=== PATIENT | female | born 1955 | race Caucasian/White ===

== ENCOUNTER 2017-01-18 18:22 | Emergency (ER) | payer MEDICAID ==
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
[2017-01-18] MEDS ORDERED: Acetaminophen 500 MG Tab PO ONE (19:56)
== END 2017-01-18 20:12 | disposition home or self-care (01) ==
LOC: JP.ED 18:22
DX: Z76.0 Encounter for issue of repeat prescription (principal); E78.00 Pure hypercholesterolemia, unspecified; J44.9 Chronic obstructive pulmonary disease, unspecified; E11.9 Type 2 diabetes mellitus without complications; Z79.82 Long term (current) use of aspirin; Z79.899 Other long term (current) drug therapy; Z88.0 Allergy status to penicillin; Z88.8 Allergy status to other drugs, medicaments and biological substances
CPT/HCPCS: 36415; 80048; 80178; 85025; 99285; A9270; 99283

== ENCOUNTER 2018-04-27 18:55 | Emergency (ER) | payer MEDICAID ==
--- NOTE | 2018-04-27 19:41 | EDM.PDOCBH ---
ED HPI GENERAL MEDICAL PROBLEM - General Chief Complaint: Drug or Alcohol Abuse Stated Complaint: OVERDOSE [place] Time Seen by Provider: 04/27/18 19:25 Source of Information: Reports: Patient, EMS, Old Records, RN History Limitations: Reports: Other (Very poor historian) - History of Present Illness INITIAL COMMENTS - FREE TEXT/NARRATIVE: 62 yo female presents from her home via EMS for a possible overdose of trazodone. She is prescribed 100 mg tabs and told EMS that she took 6. For me she is not sure exactly how many she took. Denies any other ingestions. Does have a hx of depression. Her significant other called EMS tonight when he found out what she had done, so far he has not presented to the ER. She reports only a dry mouth currently as a side effect. Is not very forthcoming with history for us tonight. Onset: Today Onset Date: 04/27/18 Duration: Minutes: (?), Hour(s): (?), Constant Location: Reports: Generalized Quality: Reports: Other (no reported pain) Severity: Mild (?) Improves with: Reports: None Worsens with: Reports: None Context: Reports: Other (see HPI) Associated Symptoms: Reports: Other (dry mouth) Treatments PERSONAL FINANCIAL ADVISOR: Reports: Other (see below) (saline lock placed per EMS) denies pain Pain Score (Numeric/FACES): 0 - Related Data Allergies Allergy/AdvReac Type Severity Reaction Status Date / Time etodolac [From Lodine] Allergy Cannot Verified 04/27/18 19:10 Remember Penicillins Allergy Cannot Verified 04/27/18 19:10 Remember zolpidem [From Ambien] Allergy Hallucinati Verified 04/27/18 19:10 ons Home Meds: Home Meds Albuterol [Ventolin HFA] 1 puff IN BID 03/26/13 [History] Aspirin [Aspirin EC] 81 mg PO DAILY 03/26/13 [History] Cholecalciferol (Vitamin D3) [Vitamin D] 5,000 unit PO DAILY 03/26/13 [History] Lactobacillus Combo No.6 [Probiotic Complex] 1 each PO DAILY 03/26/13 [History] Latanoprost 1 drop EYEBOTH BEDTIME 03/26/13 [History] Linaclotide [Linzess] 145 mcg PO BID 03/26/13 [History] [place] Carbonate 450 mg PO BEDTIME 03/26/13 [History] clonazePAM [Clonazepam] 1 mg PO TID 03/26/13 [History] ClonazePAM [KlonoPIN] 1 mg PO TID 01/18/17 [History] [place] Carbonate [[place] Carbonate ER] 450 mg PO 01/18/17 [History] atorvaSTATin [Lipitor] 20 mg PO BEDTIME 01/18/17 [History] Diclofenac Potassium [Cataflam] 50 mg PO BID 04/27/18 [History] Gabapentin [Neurontin] 300 mg PO BID 04/27/18 [History] Lisdexamfetamine [Vyvanse] 70 mg PO DAILY 04/27/18 [History] Ranitidine HCl [Zantac] 150 mg PO BID 04/27/18 [History] Vilazodone [Viibryd] 40 mg PO DAILY 04/27/18 [History] Vitamin E (Dl,Tocopheryl Acet) [Vitamin E] 800 mg PO DAILY 04/27/18 [History] chlorproMAZINE HCl [Chlorpromazine HCl] 1 - 4 tab PO ASDIRECTED PRN 04/27/18 [ History] traZODone HCl [Trazodone HCl] 350 mg PO BEDTIME 04/27/18 [History] Past Medical History Cardiovascular History: Reports: High Cholesterol Respiratory History: Reports: COPD Endocrine/Metabolic History: Reports: Diabetes, Type II Social & Family History - Tobacco Use Smoking Status *Q: Current Every Day Smoker Years of Tobacco use: 38 Packs/Tins Daily: 1 - Caffeine Use Caffeine Use: Reports: Coffee, Soda - Recreational Drug Use Recreational Drug Use: No ED ROS GENERAL - Review of Systems Review Of Systems: See Below Constitutional: Reports: No Symptoms HEENT: Reports: Other (dry mouth) Respiratory: Reports: No Symptoms Cardiovascular: Reports: No Symptoms Endocrine: Reports: No Symptoms GI/Abdominal: Reports: No Symptoms : Reports: No Symptoms Musculoskeletal: Reports: No Symptoms Skin: Reports: No Symptoms Neurological: Reports: No Symptoms Psychiatric: Reports: Depression, Suicidal Ideation (?) ED EXAM, BEHAVIORAL HEALTH - Physical Exam Exam: See Below Exam Limited By: No Limitations General Appearance: Alert, WD/WN, No Apparent Distress Eye Exam: Bilateral Eye: Normal Inspection Ears: Normal External Exam, Normal Canal, Hearing Grossly Normal Nose: Normal Inspection, No Blood Throat/Mouth: Normal Inspection, Normal Lips, Normal Oropharynx, Normal Voice, No Airway Compromise Head: Atraumatic, Normocephalic Neck: Normal Inspection Respiratory/Chest: No Respiratory Distress, Lungs Clear, Normal Breath Sounds, No Accessory Muscle Use Cardiovascular: Regular Rate, Rhythm, No Edema GI/Abdominal: Normal Bowel Sounds, Soft, Non-Tender Back Exam: Normal Inspection. No: CVA Tenderness (R), CVA Tenderness (L) Extremities: Normal Inspection, Normal Range of Motion, Non-Tender, No Pedal Edema Neurological: Alert, CN II-XII Intact, No Motor/Sensory Deficits, Oriented x 3 Psychiatric: Alert, Flat Affect Skin Exam: Warm, Dry, Intact, Normal color, No rash EKG INTERPRETATION EKG Date: 04/27/18 Time: 19:25 Rhythm: NSR Rate (Beats/Min): 86 [place]: Normal P-Wave: Present ST-T: Depressed (very slight in V5 and V6) QT: Prolonged (borderline) Comparison: Change From Previous EKG EKG Interpretation Comments: T wave inversion anterior leads. COURSE, BEHAVIORAL HEALTH COMP - Course Vital Signs: Last Vital Signs Temp 36.7 C 04/28/18 01:57 Pulse 101 H 04/28/18 01:57 Resp 16 04/28/18 01:57 BP 139/76 04/28/18 01:57 Pulse Ox 92 L 04/28/18 01:57 Orders, Labs, Meds: Active Orders 24 hr Category Date Time Status Cardiac Monitoring [RC] .As Directed Care 04/27/18 19:34 Active EKG Documentation Completion [RC] ASDIRECTED Care 04/27/18 19:48 Active LITHIUM (ESKALITH(R)), SERUM Stat Lab 04/27/18 19:06 Ordered Suicide Precautions [OM.PC] Routine Oth 04/27/18 19:26 Ordered EKG 12 Lead [EK] Routine Ther 04/27/18 19:48 Ordered Laboratory Tests 04/27/18 04/27/18 04/27/18 Range/Units 19:03 19:03 19:03 WBC 11.8 H (4.5-11.0) K/uL RBC 4.62 (3.30-5.50) M/uL Hgb 14.3 (12.0-15.0) g/dL Hct 45.0 (36.0-48.0) % MCV 97 (80-98) fL MCH 31 (27-31) pg MCHC 32 (32-36) % Plt Count 254 (150-400) K/uL Sodium (140-148) mmol/L Potassium (3.6-5.2) mmol/L Chloride (100-108) mmol/L Carbon Dioxide (21-32) mmol/L Anion Gap (5.0-14.0) mmol/L BUN (7-18) mg/dL Creatinine (0.6-1.0) mg/dL Est Cr Clr Drug Dosing Estimated GFR (MDRD) (>60) Glucose (74-106) mg/dL Calcium (8.5-10.1) mg/dL Troponin I (0.000-0.056) ng/mL Urine Color Urine Appearance Urine pH (4.5-8.0) Ur Specific [place] (1.008-1.030) Urine Protein (NEGATIVE) mg/dL Urine Glucose (UA) (NEGATIVE) mg/dL Urine Ketones (NEGATIVE) mg/dL Urine Occult Blood (NEGATIVE) Urine Nitrite (NEGATIVE) Urine Bilirubin (NEGATIVE) Urine Urobilinogen (NORMAL) mg/dL Ur Leukocyte Esterase (NEGATIVE) Salicylates 5.0 (2.0-20.0) mg/dL Urine Opiates Screen (NEGATIVE) Ur Oxycodone Screen (NEGATIVE) Urine Methadone Screen (NEGATIVE) Ur Propoxyphene Screen (NEGATIVE) Acetaminophen < 2.0 L (10.0-30.0) ug/mL Ur Barbiturates Screen (NEGATIVE) Ur Tricyclics Screen (NEGATIVE) Ur Phencyclidine Scrn (NEGATIVE) Ur Amphetamine Screen (NEGATIVE) U Methamphetamines Scrn (NEGATIVE) Urine MDMA Screen (NEGATIVE) U Benzodiazepines Scrn (NEGATIVE) U Cocaine Metab Screen (NEGATIVE) U Marijuana (THC) Screen (NEGATIVE) Ethyl Alcohol mg/dL 04/27/18 04/27/18 04/27/18 Range/Units 19:03 19:03 19:46 WBC (4.5-11.0) K/uL RBC (3.30-5.50) M/uL Hgb (12.0-15.0) g/dL Hct (36.0-48.0) % MCV (80-98) fL MCH (27-31) pg MCHC (32-36) % Plt Count (150-400) K/uL Sodium 137 L (140-148) mmol/L Potassium 4.0 (3.6-5.2) mmol/L Chloride 101 (100-108) mmol/L Carbon Dioxide 26 (21-32) mmol/L Anion Gap 14.0 (5.0-14.0) mmol/L BUN 15 (7-18) mg/dL Creatinine 1.1 H (0.6-1.0) mg/dL Est Cr Clr Drug Dosing TNP Estimated GFR (MDRD) 50 L (>60) Glucose 204 H (74-106) mg/dL Calcium 10.5 H (8.5-10.1) mg/dL Troponin I < 0.017 (0.000-0.056) ng/mL Urine Color Urine Appearance Urine pH (4.5-8.0) Ur Specific [place] (1.008-1.030) Urine Protein (NEGATIVE) mg/dL Urine Glucose (UA) (NEGATIVE) mg/dL Urine Ketones (NEGATIVE) mg/dL Urine Occult Blood (NEGATIVE) Urine Nitrite (NEGATIVE) Urine Bilirubin (NEGATIVE) Urine Urobilinogen (NORMAL) mg/dL Ur Leukocyte Esterase (NEGATIVE) Salicylates (2.0-20.0) mg/dL Urine Opiates Screen (NEGATIVE) Ur Oxycodone Screen (NEGATIVE) Urine Methadone Screen (NEGATIVE) Ur Propoxyphene Screen (NEGATIVE) Acetaminophen (10.0-30.0) ug/mL Ur Barbiturates Screen (NEGATIVE) Ur Tricyclics Screen (NEGATIVE) Ur Phencyclidine Scrn (NEGATIVE) Ur Amphetamine Screen (NEGATIVE) U Methamphetamines Scrn (NEGATIVE) Urine MDMA Screen (NEGATIVE) U Benzodiazepines Scrn (NEGATIVE) U Cocaine Metab Screen (NEGATIVE) U Marijuana (THC) Screen (NEGATIVE) Ethyl Alcohol < 3 mg/dL 04/27/18 04/27/18 Range/Units 20:51 20:51 WBC (4.5-11.0) K/uL RBC (3.30-5.50) M/uL Hgb (12.0-15.0) g/dL Hct (36.0-48.0) % MCV (80-98) fL MCH (27-31) pg MCHC (32-36) % Plt Count (150-400) K/uL Sodium (140-148) mmol/L Potassium (3.6-5.2) mmol/L Chloride (100-108) mmol/L Carbon Dioxide (21-32) mmol/L Anion Gap (5.0-14.0) mmol/L BUN (7-18) mg/dL Creatinine (0.6-1.0) mg/dL Est Cr Clr Drug Dosing Estimated GFR (MDRD) (>60) Glucose (74-106) mg/dL Calcium (8.5-10.1) mg/dL Troponin I (0.000-0.056) ng/mL Urine Color Yellow Urine Appearance Clear Urine pH 5.0 (4.5-8.0) Ur Specific [place] 1.025 (1.008-1.030) Urine Protein Negative (NEGATIVE) mg/dL Urine Glucose (UA) Normal (NEGATIVE) mg/dL Urine Ketones 50 H (NEGATIVE) mg/dL Urine Occult Blood Negative (NEGATIVE) Urine Nitrite Negative (NEGATIVE) Urine Bilirubin Negative (NEGATIVE) Urine Urobilinogen Normal (NORMAL) mg/dL Ur Leukocyte Esterase Negative (NEGATIVE) Salicylates (2.0-20.0) mg/dL Urine Opiates Screen Negative (NEGATIVE) Ur Oxycodone Screen Negative (NEGATIVE) Urine Methadone Screen Negative (NEGATIVE) Ur Propoxyphene Screen Negative (NEGATIVE) Acetaminophen (10.0-30.0) ug/mL Ur Barbiturates Screen Negative (NEGATIVE) Ur Tricyclics Screen Presumptive positive H (NEGATIVE) Ur Phencyclidine Scrn Negative (NEGATIVE) Ur Amphetamine Screen Negative (NEGATIVE) U Methamphetamines Scrn Presumptive positive H (NEGATIVE) Urine MDMA Screen Presumptive positive H (NEGATIVE) U Benzodiazepines Scrn Presumptive positive H (NEGATIVE) U Cocaine Metab Screen Negative (NEGATIVE) U Marijuana (THC) Screen Presumptive positive H (NEGATIVE) Ethyl Alcohol mg/dL Medical Clearance: 04/28/18 02:33 [facility] has accepted, 0215h Departure - Departure Time of Disposition: 02:45 Disposition: DC/Tfer to Other 70 Condition: Fair Clinical Impression: Drug abuse, Depressive disorder - Discharge Information *PRESCRIPTION DRUG MONITORING PROGRAM REVIEWED*: No *COPY OF PRESCRIPTION DRUG MONITORING REPORT IN PATIENT PIETRO: No Referrals: PCP,None [Primary Care Provider] - Forms: ED Department Discharge - My Orders Last 24 Hours: My Active Orders 04/27/18 19:06 LITHIUM (ESKALITH(R)), SERUM Stat 04/27/18 19:26 Suicide Precautions [OM.PC] Routine 04/27/18 19:34 Cardiac Monitoring [RC] .As Directed 04/27/18 19:48 EKG Documentation Completion [RC] ASDIRECTED EKG 12 Lead [EK] Routine - Assessment/Plan Last 24 Hours: My Active Orders 04/27/18 19:06 LITHIUM (ESKALITH(R)), SERUM Stat 04/27/18 19:26 Suicide Precautions [OM.PC] Routine 04/27/18 19:34 Cardiac Monitoring [RC] .As Directed 04/27/18 19:48 EKG Documentation Completion [RC] ASDIRECTED EKG 12 Lead [EK] Routine
== END 2018-04-28 03:16 | disposition other institution (70) ==
LOC: JP.ED 18:55
DX: F32.9 Major depressive disorder, single episode, unspecified (principal); F19.10 Other psychoactive substance abuse, uncomplicated; E11.9 Type 2 diabetes mellitus without complications; J44.9 Chronic obstructive pulmonary disease, unspecified; F17.210 Nicotine dependence, cigarettes, uncomplicated; Z88.8 Allergy status to other drugs, medicaments and biological substances; Z88.0 Allergy status to penicillin; Z79.82 Long term (current) use of aspirin; Z79.899 Other long term (current) drug therapy
CPT/HCPCS: 36415; 80048; 80178; 80305; 81003; 84484; 85027; 93005; 99285; G0480; 93010

== ENCOUNTER 2018-11-27 07:30 | Emergency (ER) | payer MEDICAID ==
--- NOTE | 2018-11-27 08:27 | EDM.PDOCBH ---
ED HPI GENERAL MEDICAL PROBLEM - General Chief Complaint: Behavioral/Psych Stated Complaint: mental evel Time Seen by Provider: 11/27/18 07:50 Source of Information: Reports: Patient, Police History Limitations: Reports: No Limitations - History of Present Illness INITIAL COMMENTS - FREE TEXT/NARRATIVE: 63-year-old female with a long history of bipolar disorder and depression was recently admitted to the [facility]. She has only been there for the last 1- 2 weeks, apparently doesn't like it there so is "suicidal". She doesn't have a specific plan but has had some overdose issues in the past. She has an appointment with her psychiatrist this morning, they were hoping we could watch her until her appointment and get her to her appointment and then reevaluate her if the psychiatrist felt there was a real issue. I think she is just unhappy at [facility]. - Related Data Allergies Allergy/AdvReac Type Severity Reaction Status Date / Time etodolac [From Lodine] Allergy Cannot Verified 11/27/18 08:15 Remember Penicillins Allergy Cannot Verified 11/27/18 08:15 Remember zolpidem [From Ambien] Allergy Hallucinati Verified 11/27/18 08:15 ons Home Meds: Home Meds Albuterol [Ventolin HFA] 1 puff IN BID 03/26/13 [History] Aspirin [Aspirin EC] 81 mg PO DAILY 03/26/13 [History] Cholecalciferol (Vitamin D3) [Vitamin D] 5,000 unit PO DAILY 03/26/13 [History] Latanoprost 1 drop EYEBOTH BEDTIME 03/26/13 [History] Goldsmith Carbonate 450 mg PO BEDTIME 03/26/13 [History] ClonazePAM [KlonoPIN] 1 mg PO TID 01/18/17 [History] atorvaSTATin [Lipitor] 20 mg PO BEDTIME 01/18/17 [History] Gabapentin [Neurontin] 300 mg PO BID 04/27/18 [History] chlorproMAZINE HCl [Chlorpromazine HCl] 1 - 4 tab PO ASDIRECTED PRN 04/27/18 [ History] raNITIdine HCl [Zantac] 150 mg PO BID 04/27/18 [History] traZODone HCl [Trazodone HCl] 300 mg PO BEDTIME 04/27/18 [History] Citalopram [Citalopram HBr] 20 mg PO DAILY 11/27/18 [History] Meloxicam [Mobic] 7.5 mg PO DAILY 11/27/18 [History] Pramipexole [Mirapex] 0.25 mg PO BEDTIME 11/27/18 [History] Tiotropium Br/Olodaterol HCl [Stiolto Respimat Inhal Spivey] 2 puff IH DAILY [History] glipiZIDE [Glucotrol XL] 5 mg PO DAILY 11/27/18 [History] metFORMIN [Glucophage] 500 mg PO BIDMEALS 11/27/18 [History] Past Medical History HEENT History: Reports: Impaired Vision Cardiovascular History: Reports: High Cholesterol Respiratory History: Reports: COPD Gastrointestinal History: Reports: Other (See Below) Other Gastrointestinal History: unable to obtain due to pt condition Genitourinary History: Reports: Other (See Below) Other Genitourinary History: unable to obtain due to pt condition RESEARCH AIDE History: Reports: Musculoskeletal History: Reports: Osteoarthritis Other Musculoskeletal History: unable to obtain due to pt condition Neurological History: Reports: Other (See Below) Other Neuro History: unable to obtain due to pt condition Psychiatric History: Reports: Bipolar, Depression Endocrine/Metabolic History: Reports: Diabetes, Type II Hematologic History: Reports: Other (See Below) Other Hematologic History: unable to obtain due to pt condition Immunologic History: Reports: Other (See Below) Other Immunologic History: unable to obtain due to pt condition Oncologic (Cancer) History: Reports: Other (See Below) Other Oncologic History: unable to obtain due to pt condition Dermatologic History: Reports: Other (See Below) Other Dermatologic History: unable to obtain due to pt condition - Infectious Disease History Infectious Disease History: Reports: Chicken Pox Other Infectious Disease History: unable to obtain due to pt condition - Past Surgical History HEENT Surgical History: Reports: Other (See Below) GI Surgical History: Reports: Other (See Below) Female Surgical History: Reports: Section Social & Family History - Tobacco Use Smoking Status *Q: Current Every Day Smoker Years of Tobacco use: 40 Packs/Tins Daily: 0.5 - Caffeine Use Caffeine Use: Reports: Coffee - Recreational Drug Use Recreational Drug Use: No ED ROS GENERAL - Review of Systems Review Of Systems: See Below Constitutional: Denies: Fever HEENT: Reports: No Symptoms Respiratory: Denies: Shortness of Breath GI/Abdominal: Denies: Nausea Neurological: Reports: Headache Psychiatric: Reports: Anxiety ED EXAM, BEHAVIORAL HEALTH - Physical Exam Exam: See Below Exam Limited By: No Limitations General Appearance: Alert, No Apparent Distress Eye Exam: Bilateral Eye: Normal Inspection Head: Atraumatic Neck: Supple Respiratory/Chest: Lungs Clear Cardiovascular: Regular Rate, Rhythm Extremities: No: Pedal Edema Neurological: Alert, Normal Mood/Affect, Oriented x 3 Psychiatric: Alert, Normal Affect Skin Exam: Warm, Dry COURSE, BEHAVIORAL HEALTH COMP - Course Vital Signs: Last Vital Signs Temp 93.9 F L 11/27/18 08:01 Pulse 87 11/27/18 08:01 Resp 16 11/27/18 08:01 BP 133/82 11/27/18 08:01 Pulse Ox 99 11/27/18 08:01 Orders, Labs, Meds: Active Orders 24 hr Category Date Time Status DRUG SCREEN, URINE [URCHEM] Stat Lab 11/27/18 07:53 Ordered UA W/MICROSCOPIC [URIN] Urgent Lab 11/27/18 07:53 Ordered Laboratory Tests 11/27/18 11/27/18 Range/Units 08:04 08:04 WBC 12.9 H (4.5-11.0) K/uL RBC 4.83 (3.30-5.50) M/uL Hgb 12.6 (12.0-15.0) g/dL Hct 41.7 (36.0-48.0) % MCV 86 (80-98) fL MCH 26 L (27-31) pg MCHC 30 L (32-36) % Plt Count 328 (150-400) K/uL Neut % (Auto) 71 H (36-66) % Lymph % (Auto) 20 L (24-44) % Bledsoe % (Auto) 6 (2-6) % Eos % (Auto) 3 (2-4) % Baso % (Auto) 0 (0-1) % Sodium 139 L (140-148) mmol/L Potassium 4.5 (3.6-5.2) mmol/L Chloride 103 (100-108) mmol/L Carbon Dioxide 28 (21-32) mmol/L Anion Gap 12.5 (5.0-14.0) mmol/L BUN 9 (7-18) mg/dL Creatinine 1.0 (0.6-1.0) mg/dL Est Cr Clr Drug Dosing 53.91 mL/min Estimated GFR (MDRD) 56 L (>60) Glucose 189 H (74-106) mg/dL Calcium 9.3 (8.5-10.1) mg/dL Total Bilirubin 0.5 (0.2-1.0) mg/dL AST 10 L (15-37) U/L ALT 26 (12-78) U/L Alkaline Phosphatase 46 (46-116) U/L Total Protein 7.1 (6.4-8.2) g/dL Albumin 3.5 (3.4-5.0) g/dL Globulin 3.6 H (2.3-3.5) g/dL Albumin/Globulin Ratio 1.0 L (1.2-2.2) TSH, Ultra Sensitive 1.659 (0.358-3.740) uIU/mL Medications Discontinued Medications Generic Name Dose Route Start Last Admin Trade Name Freq PRN Reason Stop Dose Admin Acetaminophen 650 mg 11/27/18 09:18 11/27/18 09:27 Tylenol PO 11/27/18 09:19 650 mg NOW ONE Administration Metformin HCl 500 mg 11/27/18 09:42 11/27/18 10:00 Glucophage PO 11/27/18 09:43 500 mg ONETIME ONE Administration Re-Assessment/Re-Exam: CBC and CMP were obtained as well as a TSH. The patient was very needy, continually asking for either food, water, medicine for anxiety or other requests. Labs were generally normal including her TSH. Transportation was arranged for her to get to her psychiatric appointment. Departure - Departure Time of Disposition: 12:50 Disposition: DC/Tfer to Other 70 Clinical Impression: Depressive disorder - Discharge Information Instructions: Major Depressive Disorder, Adult, [id number] Referrals: PCP,None [Primary Care Provider] - Forms: ED Department Discharge Care Plan Goals: Go to your appointments as scheduled and follow the advice of your primary providers. - My Orders Last 24 Hours: My Active Orders 11/27/18 07:53 DRUG SCREEN, URINE [URCHEM] Stat UA W/MICROSCOPIC [URIN] Urgent - Assessment/Plan Last 24 Hours: My Active Orders 11/27/18 07:53 DRUG SCREEN, URINE [URCHEM] Stat UA W/MICROSCOPIC [URIN] Urgent
[2018-11-27] MEDS ORDERED: Acetaminophen 325 MG Tab PO ONE (09:18)
[2018-11-27] MEDS ORDERED: metFORMIN 500 MG Tab PO ONE (09:42)
== END 2018-11-27 12:35 | disposition other institution (70) ==
LOC: JP.ED 07:30
DX: F32.9 Major depressive disorder, single episode, unspecified (principal); F31.9 Bipolar disorder, unspecified; E11.9 Type 2 diabetes mellitus without complications; E78.00 Pure hypercholesterolemia, unspecified; M19.90 Unspecified osteoarthritis, unspecified site; F17.210 Nicotine dependence, cigarettes, uncomplicated; Z88.0 Allergy status to penicillin; Z88.8 Allergy status to other drugs, medicaments and biological substances; Z79.51 Long term (current) use of inhaled steroids; Z79.82 Long term (current) use of aspirin; Z79.84 Long term (current) use of oral hypoglycemic drugs; Z79.899 Other long term (current) drug therapy
CPT/HCPCS: 36415; 80053; 84443; 85025; 99284; A9270